=== PATIENT | male | born 1980 | race Caucasian/White ===

== ENCOUNTER → 2021-01-03 | Outpatient (CLI) | payer OTHER ==
[~2021-01-03] MED LIST: ADVIL DUAL ACT1 EACH PO; IBUPROFEN 400400 M1 PO
== END ==
LOC: M.PC 08:00
PROVIDERS: ATTEND Anesthesiology Pain Medicine
DX: M47.26 Other spondylosis with radiculopathy, lumbar region (principal); M51.36 Other intervertebral disc degeneration, lumbar region; R20.0 Anesthesia of skin; I10 Essential (primary) hypertension

== ENCOUNTER → 2021-01-05 | Outpatient (CLI) | payer OTHER | END | disposition home or self-care (01) | LOC: M.PC 09:20 | PROVIDERS: ATTEND Anesthesiology Pain Medicine | DX: M51.16 Intervertebral disc disorders with radiculopathy, lumbar region (principal); G89.29 Other chronic pain; M48.061 Spinal stenosis, lumbar region without neurogenic claudication; I10 Essential (primary) hypertension; E66.9 Obesity, unspecified; Z98.890 Other specified postprocedural states; Z79.899 Other long term (current) drug therapy; Z68.35 Body mass index [BMI] 35.0-35.9, adult ==

== ENCOUNTER → 2021-03-09 | Outpatient (CLI) | payer OTHER | END | disposition home or self-care (01) | LOC: M.PC 12:12 | PROVIDERS: ATTEND Anesthesiology Pain Medicine | DX: M51.16 Intervertebral disc disorders with radiculopathy, lumbar region (principal); G89.29 Other chronic pain; I10 Essential (primary) hypertension; E66.9 Obesity, unspecified; M19.90 Unspecified osteoarthritis, unspecified site; Z98.890 Other specified postprocedural states; Z79.899 Other long term (current) drug therapy; Z68.36 Body mass index [BMI] 36.0-36.9, adult ==